=== PATIENT | female | born 1945 | race Caucasian/White ===

== ENCOUNTER → 2017-07-07 11:12 | Outpatient (CLI) | payer MEDICARE ==
[2015-04-18 13:10] VITALS: BMI 31.7
[~2017-07-07 11:12] MED LIST: ALOE VERA PO; AMOXICILLIN500 M1 PO; ARMOUR THYROID30 MG PO; BENICAR40 MG PO; BRILINTA90 MG PO; HYDRALAZINE HCL25 MG PO; HYDRALAZINE HCL50 MG PO; LIPITOR10 MG PO; LITE COAT ASPI325 MG; MULTIPLE VITAMI1 TA1; NORCO 5/325 TAB1 TA1 PO; OMEGA; OMEGA Q PLUS; PRAVACHOL20 MG PO; PROBIOTIC1 EAC1 PO; [UNRECOGNIZED DRUG - OTHER]; [UNRECOGNIZED DRUG - OTHER]; [UNRECOGNIZED DRUG - OTHER]; [UNRECOGNIZED DRUG - OTHER]; [UNRECOGNIZED DRUG - OTHER]; [UNRECOGNIZED DRUG - OTHER]; [UNRECOGNIZED DRUG - OTHER]; [UNRECOGNIZED DRUG - OTHER] PO
== END | disposition home or self-care (01) ==
LOC: D.US 07-03 13:00
DX: I65.23 Occlusion and stenosis of bilateral carotid arteries (principal)

== ENCOUNTER → 2018-02-24 12:31 | Outpatient (CLI) | payer MEDICARE ==
[2015-04-18 13:10] VITALS: BMI 31.7
== END | disposition home or self-care (01) ==
LOC: D.CT 12:31
DX: R10.9 Unspecified abdominal pain (principal)

== ENCOUNTER → 2018-09-27 10:26 | Outpatient (CLI) | payer MEDICARE ==
[2015-04-18 13:10] VITALS: BMI 31.7
== END | disposition home or self-care (01) ==
LOC: D.US 10:26
DX: I65.23 Occlusion and stenosis of bilateral carotid arteries (principal)

== ENCOUNTER → 2019-08-09 09:55 | Outpatient (CLI) | payer MEDICARE ==
[2015-04-18 13:10] VITALS: BMI 31.7
--- NOTE | 2019-08-15 13:29 | EC ---
PATIENT:CHEMA ROSADO DATE OF SERVICE: 08/09/19 SEX: F MEDICAL RECORD: [id number] DATE OF : 49 LOCATION:D.[facility] AGE OF PATIENT: 73 ADMISSION DATE: 08/09/19 REFERRING PHYSICIAN: INTERPRETING PHYSICIAN: BI ZAMORA MD ECHOCARDIOGRAM REPORT ECHO CHARGES 4 ECHO COMPLETE Date: 08/09/19 CLINICAL DIAGNOSIS: CAD HX TR/AO SCL ECHOCARDIOGRAPHIC MEASUREMENTS (adult normal given) AC root (d.<3.7cm) 3.1 cm LV Septum d (<1.2 cm> 1.4 cm Valve Excursion 1.7 cm LV Septum (systole) 1.6 cm Left Atria (s.<4.0cm> 4.2 cm LVPW d(<1.2cm) 1.6 cm RV (d.<2.3cm) 4.1 cm LVPW (sytole) 1.8 cm LV diastole(<5.6CM) 5.1 cm MV E-F(>70mm/sec) cm LV systole 4.0 cm LVOT Diameter 1.5 cm MV exc.(>10mm) 1.4 cm Est.ejection fraction (50-75%) % DOPPLER: LVIT cm/sec A 112.0cm/sec E 66.0 cm/sec LA cm/sec RVSP 30 mmHg LVOT 131 cm/sec AOP1/2T m/s Asc. Ao 167 cm/sec RVOT 74 cm/sec RA cm/sec PA 118 cm/sec AV Gradient Peak 11.14mmHg AV Mean 6.06 mmHg AV Area 1.3 cm MV Gradient Peak 7.38 mmHg MV Mean 2.88 mmHg MV Area cm COMMENTS: Certified Phlebotomy Technician: 2 STEPHANIE BOWLING Career Services Assistant: 3 Dr. Fonseca TAPE# PACS Pericardial Effusion N DATE OF SERVICE: Adequate 2D, color flow, spectral Doppler, and M-mode. LVH is present. LV internal dimensions are normal. LV appears to be mildly globally hypo with EF mildly reduced at 40% to 45%. Aortic valve sclerosis without stenosis by Doppler interrogation. Left atrium is minimally dilated at 4.2. Mitral valve shows no prolapse. Mild MR. Right-sided chambers are grossly normal. Mild TR. TRANSINT:[id number] Voice Confirmation ID: [id number] DOCUMENT ID: [id number] ECHOCARDIOGRAM REPORT [id number] HCEMA ROSADO GREGORY A MD at 1329 CC: [id number] DICTATION DATE: 08/11/19 1306 FRAUD PREVENTION ANALYST: 08/11/19 1323 DEP CLI 08/09/19 [id number] [place] [address]
== END | disposition home or self-care (01) ==
LOC: D.HCCECHO 09:55
PROVIDERS: ATTEND Internal Medicine Interventional Cardiology
DX: I25.10 Atherosclerotic heart disease of native coronary artery without angina pectoris (principal); I67.9 Cerebrovascular disease, unspecified